=== PATIENT | female | born 1990 | race Two or more races ===

== ENCOUNTER 2022-03-20 10:44 | Emergency (ER) | payer OTHER ==
[~2022-03-20] VITALS: Ht 157.5 cm; Wt 101.6 kg
[~2022-03-20 10:44] MED LIST: MULTIVITAMIN1 TAB
[2022-03-20] MEDS ORDERED: METFORMIN HCL500 M4 PO (11:10)
[2022-03-20] MEDS ORDERED: ALBUTEROL2.5 MG/3 M IH (11:10)
== END 2022-03-20 16:37 | disposition home or self-care (01) ==
LOC: ER 10:44
DX: J45.901 Unspecified asthma with (acute) exacerbation (principal)

== ENCOUNTER 2022-03-25 14:05 | Emergency (ER) | payer OTHER ==
[~2022-03-25] VITALS: Ht 157.5 cm; Wt 101.6 kg
[~2022-03-25 14:05] MED LIST changes: +ALBUTEROL2.5 MG/3 M IH; +METFORMIN HCL500 M4 PO
== END 2022-03-25 17:39 | disposition home or self-care (01) ==
LOC: ER 14:05
DX: K29.70 Gastritis, unspecified, without bleeding (principal)

== ENCOUNTER 2023-02-10 11:22 | Emergency (ER) | payer OTHER ==
[~2023-02-10] VITALS: Ht 157.5 cm; Wt 101.2 kg
[2023-02-10 15:03] LABS: HEMOGLOBIN 11.9 g/dL (12.0-15.00); MEAN CELL VOLUME 81.8 fL (80.00-100.00); MEAN CORPUSCULAR HEMOGLOBIN 27.1 pg (27.00-32.0); MEAN CORPUSCULAR HGB CONC 33.1 g/dl (32.0-36.0); PLATELET COUNT 286 K/uL (150-450); RED CELL DISTRIBUTION WIDTH 14.9 % (11.5-14.5)
== END 2023-02-10 21:29 | disposition home or self-care (01) ==
LOC: ER 11:22
PROVIDERS: General Practice
DX: J45.909 Unspecified asthma, uncomplicated (principal); E11.9 Type 2 diabetes mellitus without complications; Z79.84 Long term (current) use of oral hypoglycemic drugs; Z20.822 Contact with and (suspected) exposure to COVID-19